=== PATIENT | female | born 1970 | race African-American/Black ===

== ENCOUNTER 2017-05-19 03:04 | Emergency (ER) | payer BC ==
[~2017-05-19] VITALS: Ht 167.6 cm; Wt 111.4 kg
[2017-05-19 03:11] VITALS: BP 142/87; PULSE 90; RESP 12; TEMP 99.2; O2SAT 100
[2017-05-19] MEDS ORDERED: TRIA37.5 PO (03:22)
[2017-05-19] MEDS ORDERED: LEVO.2 PO (03:22)
[2017-05-19] MEDS ORDERED: PAXI30TA7 PO (03:22)
[2017-05-19] MEDS ORDERED: METH500T PO (03:22)
[2017-05-19] MEDS ORDERED: SYNT175T PO (03:22)
[2017-05-19] MEDS ORDERED: CHOL1CAP34 PO (03:22)
[2017-05-19 03:38] VITALS: BP 135/87; PULSE 80
[2017-05-19] MEDS ORDERED: diphenhydrAMINE HCL 50 MG/ML VIAL IV PUSH ONE (03:45)
[2017-05-19] MEDS ORDERED: PROCHLORPERAZINE INJ 10 MG/2 ML VIAL IV PUSH ONE (03:45)
[2017-05-19] MEDS ORDERED: KETOROLAC TROMETHAMINE 30 MG/ML (IVP) VIAL IV PUSH ONE (03:45)
[2017-05-19] MEDS ORDERED: SODIUM CHLOR 0.9% 1000 ML INJ 1,000 ML IV ONE (03:45)
--- NOTE | 2017-05-19 03:47 | PD ---
HPI Chief Complaint: Headache Time Seen by Provider: 03:17 Travel History International Travel<30 days: No Contact w/Intl Traveler<30days: No Traveled to known affect area: No History of Present Illness HPI This is a 47-year-old female who has a history of migraine headaches in the past who presents to the emergency department with 2 days of a headache that involves mostly her forehead and goes behind her eyes. She says started around 2 PM yesterday but was gradual in onset. She has had some nausea with it. She' s taken BC powder and she tried to take her blood pressure medicine but it's not helping so she came to the emergency department. She denies any vomiting, difficulty walking or difficulty talking. She says that her doctor used to prescribe her Midrin and Fioricet for her headaches but she hasn't had one in quite a while so she didn't have anything at home to take. PFSH Past Medical History Anxiety: Yes High Cholesterol: Yes Gastrointestinal Disorders: Yes (IBS) GERD: Yes Hiatal Hernia: Yes Hypertension: Yes Reproductive: Yes (ENDOMETRIOSIS, UTERINE FIBROID TUMORS) Migraines: Yes Thyroid Disease: Yes (HYPOTHYROIDISM) Tetanus Vaccination: > 5 Years Influenza Vaccination: Yes ?: Not LMP: 05/05/17 : 3 Miscarriage: 3 Ectopic : Yes (X2) Past Surgical History Abdominal Surgery: Yes (SMALL HIATAL HERNIA REPAIR:2014, EXPLORATORY LAPS: 1990,1994,1996) Cholecystectomy: Yes (2007) Gynecologic Surgery: Yes (LEFT BREAST NODULE REMOVED: NOT CANCER, MYOMECTOMY: 2002) Social History Alcohol Use: No Tobacco Use: No Substance Use: No Allergies-Medications (Allergen,Severity, Reaction): Coded Allergies: No Known Allergies (Verified Allergy, Unknown, 05/19/17) Reported Meds & Prescriptions Reported Meds & Active Scripts Active Reported Paxil (Paroxetine HCl) 30 Mg Tab 30 Mg PO DAILY Vitamin D3 (Cholecalciferol) 50,000 Unit Cap 50,000 Units PO Q7D Triamterene-Hydrochlorothiazide 37.5-25 Mg Tab 1 Tab PO DAILY Methyldopa 500 Mg Tab 500 Mg PO BID Synthroid (Levothyroxine Sodium) 200 Mcg Tab 200 Mcg PO DAILY MONDAY Synthroid (Levothyroxine Sodium) 175 Mcg Tab 175 Mcg PO DAILY M,T,W,TH,F,SA Review of Systems Except as stated in HPI: all other systems reviewed are Neg Physical Exam Narrative GENERAL:Well appearing, no acute distress SKIN: Focused skin assessment warm and dry. HEAD: Atraumatic. Normocephalic. EYES: Pupils equal and round. No injection or drainage. ENT: Moist mucous membranes NECK: Trachea midline. CARDIOVASCULAR: Regular rate and rhythm. No murmur appreciated. RESPIRATORY: Clear to auscultation. Breath sounds equal bilaterally. GASTROINTESTINAL: Abdomen soft, non-tender, nondistended. MUSCULOSKELETAL: No obvious deformities. NEUROLOGICAL: Awake and alert. No obvious cranial nerve deficits. No dysarthria or aphasia. No upper or lower extremity drift. No upper extremity ataxia. Visual sands intact. PSYCHIATRIC: Appropriate mood and affect; insight and judgment normal. Data Data Last Documented VS Vital Signs Date Time Temp Pulse Resp B/P (MAP) Pulse Ox O2 Delivery O2 Flow Rate FiO2 05/19/17 04:41 74 16 124/76 (92) 98 Room Air 05/19/17 03:11 99.2 Orders Orders Ketorolac Inj (Toradol Inj) (05/19/17 03:45) Prochlorperazine Inj (Compazine Inj) (05/19/17 03:45) Diphenhydramine Inj (Benadryl Inj) (05/19/17 03:45) Sodium Chlor 0.9% 1000 Ml Inj (Ns 1000 M (05/19/17 03:45) ^ Insert Iv (05/19/17 03:45) MDM Medical Decision Making Medical Screen Exam Complete: Yes Emergency Medical Condition: Yes Differential Diagnosis migraine headache, tension headache, subarachnoid hemorrhage, cluster headache Narrative Course This is a 47 year old female who presents to the emergency department with symptoms consistent with a tension headache. Her headache was gradual in onset and similar to headaches she has had in the past so I don't suspect subarachnoid hemorrhage and I don't think any further imaging is warranted. Pt. has a normal neurologic exam. She was given IV fluids, toradol and compazine and feels much better. Pt. was discharged home with naproxen. Diagnosis Primary Impression: Tension headache Patient Instructions: General Instructions Additional Instructions: If you develop severe or worsening headache, vomiting, difficulty walking or difficulty talking return to the emergency department. Some times in the emergency department we don't identify the cause of headaches. If you continue to have headaches follow up with your primary care physician as you may need an MRI. Med/Other Pt SpecificInfo: Prescription(s) given Scripts Naproxen (Naproxen) 500 Mg Tab 500 MG PO BID Y for PAIN SCALE 4 TO 10, #15 TAB 0 Refills Prov: Martha Malagon MD 05/19/17 Disposition: 01 DISCHARGE HOME Condition: Stable Martha Malagon MD May 19, 2017 03:47
[2017-05-19 04:20] VITALS: BP 114/74; PULSE 85; RESP 16; O2SAT 95
[2017-05-19 04:41] VITALS: BP 124/76; PULSE 74; RESP 16; O2SAT 98
[2017-05-19] MEDS ORDERED: NAPR500T PO (04:48)
== END 2017-05-19 05:00 | disposition home or self-care (01) ==
LOC: PHED 03:04
DX: G44.209 Tension-type headache, unspecified, not intractable (principal); E03.9 Hypothyroidism, unspecified; E78.00 Pure hypercholesterolemia, unspecified; I10 Essential (primary) hypertension
CPT/HCPCS: 96361; 96374; 96375; 99284; J0780; J1200; J1885; J7030

== ENCOUNTER 2017-05-31 21:46 | Emergency (ER) | payer BC ==
[~2017-05-31] VITALS: Ht 167.6 cm; Wt 110.5 kg
[~2017-05-31 21:46] MED LIST: CHOL1CAP34 PO; LEVO.2 PO; METH500T PO; NAPR500T PO; PAXI30TA7 PO; SYNT175T PO; TRIA37.5 PO
[2017-05-31 21:48] VITALS: BP 150/95; PULSE 103; RESP 18; TEMP 98.2; O2SAT 98
[2017-05-31] MEDS ORDERED: FERR325C PO (22:13)
[2017-05-31] MEDS ORDERED: TRAM50TA PO (22:13)
[2017-05-31] MEDS ORDERED: DHEA50TA PO (22:13)
[2017-05-31] MEDS ORDERED: diphenhydrAMINE HCL 50 MG CAP PO ONE (22:15)
--- NOTE | 2017-05-31 22:20 | PD ---
HPI Chief Complaint: Skin Problem Time Seen by Provider: 22:00 Travel History International Travel<30 days: No Contact w/Intl Traveler<30days: No Traveled to known affect area: No History of Present Illness HPI 47-year-old female presents emergency department for a rash under her breasts for 2 weeks. States she used an [id number] medication miconazole and nystatin cream but has only worsened over this last week. States that she gets these infections about once a year and they clear up without a problem. Rash is pruritic and only mildly painful at 2 out of 10. She denies fever, chills, chest pain, shortness of breath, back pain. Denies recent travel, new medication, or food. PFSH Past Medical History Anxiety: Yes High Cholesterol: Yes Gastrointestinal Disorders: Yes (IBS) GERD: Yes Hiatal Hernia: Yes Hypertension: Yes Reproductive: Yes (ENDOMETRIOSIS, UTERINE FIBROID TUMORS) Migraines: Yes Thyroid Disease: Yes (HYPOTHYROIDISM) : 3 Miscarriage: 3 Ectopic : Yes (X2) Past Surgical History Abdominal Surgery: Yes (SMALL HIATAL HERNIA REPAIR:2014, EXPLORATORY LAPS: 1990,1994,1996) Cholecystectomy: Yes (2007) Gynecologic Surgery: Yes (LEFT BREAST NODULE REMOVED: NOT CANCER, MYOMECTOMY: 2002) Social History Alcohol Use: No Tobacco Use: No Substance Use: No Allergies-Medications (Allergen,Severity, Reaction): Coded Allergies: No Known Allergies (Verified Allergy, Unknown, 05/31/17) Reported Meds & Prescriptions Reported Meds & Active Scripts Active Nystatin Topical (Nystatin) 100,000 unit/gm Cream 1 Applic TOPICAL BID 14 Days Nystatin-Triamcinolone 100,000-0.1 Unit/Gm Cream 1 Applic TOPICAL BID Reported Tramadol (Tramadol HCl) 50 Mg Tab 50 Mg PO Q8H PRN Iron (Ferrous Sulfate) 325 Mg Cap 325 Mg PO DAILY Dhea (Prasterone (DHEA)) 50 Mg Tab 50 Mg PO DAILY Paxil (Paroxetine HCl) 30 Mg Tab 30 Mg PO DAILY Vitamin D3 (Cholecalciferol) 50,000 Unit Cap 50,000 Units PO Q7D Triamterene-Hydrochlorothiazide 37.5-25 Mg Tab 1 Tab PO DAILY Methyldopa 500 Mg Tab 500 Mg PO BID Synthroid (Levothyroxine Sodium) 200 Mcg Tab 200 Mcg PO DAILY MONDAY Synthroid (Levothyroxine Sodium) 175 Mcg Tab 175 Mcg PO DAILY M,T,W,TH,F,SA Review of Systems Except as stated in HPI: all other systems reviewed are Neg Physical Exam Narrative GENERAL: Well-developed well-nourished SKIN: Focused skin assessment warm/dry. Bilateral breast folds with raised plaques (left 12cm x 4cm, right 10cm x 5cm) with scant satellite lesions. Mild erythema. No scaling, no lymphangiopathic spread. HEAD: Atraumatic. Normocephalic. NECK: Trachea midline. No JVD. CARDIOVASCULAR: Regular rate and rhythm. No murmur appreciated. RESPIRATORY: No accessory muscle use. Clear to auscultation. Breath sounds equal bilaterally. MUSCULOSKELETAL: No obvious deformities. NEUROLOGICAL: Awake and alert. No obvious cranial nerve deficits. Motor grossly within normal limits. Normal speech. PSYCHIATRIC: Appropriate mood and affect; insight and judgment normal. Data Data Last Documented VS Vital Signs Date Time Temp Pulse Resp B/P (MAP) Pulse Ox O2 Delivery O2 Flow Rate FiO2 05/31/17 21:48 98.2 103 18 150/95 (113) 98 Orders Orders Diphenhydramine (Benadryl) (05/31/17 22:15) Ed Discharge Order (05/31/17 22:22) MDM Medical Decision Making Medical Screen Exam Complete: Yes Emergency Medical Condition: Yes Differential Diagnosis Contact dermatitis versus intertrigo versus eczema Narrative Course 47-year-old female here for evaluation of bilateral breast rash for 2 weeks. States that she has had this rash before but clears up with nystatin. This episode of rash has not cleared up and has worsened over the last week. No recent travel, medications, or foods. Physical exam revealed a large plaques under bilateral breasts with mild erythema. No evidence of lymphangitic Spread or infectious process. No excoriations present. No dimpling of breast tissue. History and Physical is consistent with intertrigo. Patient prescribed nystatin with triamcinolone and nystatin powder. Advised to keep the areas dry and clean to prevent worsening of the rash and infection. Follow-up with primary care physician within 2 days Advised to return to the emergency department if rash worsens or signs of infection develop. Diagnosis Primary Impression: Intertrigo Referrals: [facility] Swamper Primary Care Physician Additional Instructions: Keep area clean and dry. Recommend using ointments at night and powder during the day. Follow up a primary care physician within 2 days If rash develops increased redness develops pus or increased swelling return to the emergency department further treatment and evaluation Scripts Nystatin Topical (Nystatin Topical) 100,000 unit/gm Cream 1 APPLIC TOPICAL BID for Infection for 14 Days, #15 GM 0 Refills Prov: Latonia Freed MD 05/31/17 Nystatin-Triamcinolone (Nystatin-Triamcinolone) 100,000-0.1 Unit/Gm Cream 1 APPLIC TOPICAL BID for Infection, #30 GM 0 Refills Prov: Latonia Freed MD 05/31/17 Disposition: 01 DISCHARGE HOME Condition: Stable Mylene Saha May 31, 2017 22:20
[2017-05-31] MEDS ORDERED: NYST15T TOPICAL (22:21)
[2017-05-31] MEDS ORDERED: NYSTCRE29 TOPICAL (22:21)
[2017-05-31] MEDS ORDERED: NYST10007 TOPICAL (22:31)
[2017-06-01] MEDS ORDERED: NYSTATIN/TRIAMCINOLONE OINT 15 GM TUBE TOPICAL SCH (09:00)
== END 2017-05-31 22:33 | disposition home or self-care (01) ==
LOC: PHED 21:46 → PHEFT 22:33
DX: L30.4 Erythema intertrigo (principal); I10 Essential (primary) hypertension; E03.9 Hypothyroidism, unspecified; E78.00 Pure hypercholesterolemia, unspecified
CPT/HCPCS: 99283; Q0163

== ENCOUNTER 2017-07-10 20:25 | Emergency (ER) | payer BC ==
[~2017-07-10] VITALS: Ht 167.6 cm; Wt 112.3 kg
[~2017-07-10 20:25] MED LIST changes: +DHEA50TA PO; +FERR325C PO; -NAPR500T PO; +NYST10007 TOPICAL; +NYSTCRE29 TOPICAL; +TRAM50TA PO
[2017-07-10 20:27] VITALS: BP 133/88; PULSE 96; RESP 20; TEMP 98.1; O2SAT 98
--- NOTE | 2017-07-10 20:44 | PD ---
HPI . Fourth digit right foot toe pain Chief Complaint: Injury Time Seen by Provider: 20:38 Travel History International Travel<30 days: No Contact w/Intl Traveler<30days: No Traveled to known affect area: No History of Present Illness HPI 47-year-old female presents emergency department for evaluation of fourth digit right foot toe pain times one week. Patient states she accidentally hit her toe on a ladder last week. Patient denies any history of diabetes. She denies any fever, chills, malaise, chest pain, shortness breath. Patient has been ambulatory on the foot without a limp. PFSH Past Medical History Anxiety: Yes Cardiovascular Problems: Yes (HTN) High Cholesterol: Yes Gastrointestinal Disorders: Yes (IBS) GERD: Yes Hiatal Hernia: Yes Hypertension: Yes Reproductive: Yes (ENDOMETRIOSIS, UTERINE FIBROID TUMORS) Migraines: Yes Pancreatitis: Yes Thyroid Disease: Yes (HYPOTHYROIDISM) Tetanus Vaccination: > 5 Years Influenza Vaccination: Yes ?: Not LMP: 2 WEEEKS : 3 Miscarriage: 3 Ectopic : Yes (X2) Past Surgical History Abdominal Surgery: Yes (SMALL HIATAL HERNIA REPAIR:2014, EXPLORATORY LAPS: 1990,1994,1996) Cholecystectomy: Yes (2007) Gynecologic Surgery: Yes (LEFT BREAST NODULE REMOVED: NOT CANCER, MYOMECTOMY: 2002) Social History Alcohol Use: No Tobacco Use: No Substance Use: No Allergies-Medications (Allergen,Severity, Reaction): Coded Allergies: No Known Allergies (Verified , 07/10/17) Reported Meds & Prescriptions Reported Meds & Active Scripts Active Reported Triamterene-Hydrochlorothiazide 37.5-25 Mg Tab 1 Tab PO DAILY Methyldopa 500 Mg Tab 500 Mg PO BID Synthroid (Levothyroxine Sodium) 200 Mcg Tab 200 Mcg PO DAILY MONDAY Synthroid (Levothyroxine Sodium) 175 Mcg Tab 175 Mcg PO DAILY M,T,W,TH,F,SA Review of Systems Except as stated in HPI: all other systems reviewed are Neg Physical Exam Narrative GENERAL: Well-nourished, well-developed 47-year-old female patient in no acute distress. Nontoxic appearing. SKIN: Focused skin assessment warm/dry. HEAD: Normocephalic. Atraumatic. EYES: No scleral icterus. No injection or drainage. NECK: Supple, trachea midline. No JVD or lymphadenopathy. CARDIOVASCULAR: Regular rate and rhythm without murmurs, gallops, or rubs. Pedal pulses +2 bilaterally. RESPIRATORY: Breath sounds equal bilaterally. No accessory muscle use. GASTROINTESTINAL: Abdomen soft, non-tender, nondistended. MUSCULOSKELETAL: Full range of motion noted with right foot. Full range of motion noted in the digits of the right foot. BACK: Nontender without obvious deformity. No CVA tenderness. Data Data Last Documented VS Vital Signs Date Time Temp Pulse Resp B/P (MAP) Pulse Ox O2 Delivery O2 Flow Rate FiO2 07/10/17 20:27 98.1 96 20 133/88 (103) 98 Orders Orders Ice/Cold Pack (07/10/17 20:32) Splint Or Brace Apply/Monitor (07/10/17 20:40) Ketorolac Inj (Toradol Inj) (07/10/17 20:45) Ed Discharge Order (07/10/17 20:44) [facility] Medical Decision Making Medical Screen Exam Complete: Yes Emergency Medical Condition: Yes Differential Diagnosis Differential diagnoses include but not limited to contusion, fracture, sprain Narrative Course 47-year-old female presents emergency department for evaluation of right toe pain of the fourth digit times one week. The fourth digit of the right toe has no obvious deformities, ecchymosis and has full range of motion. Fourth digit of the right toe was jose wrapped and patient was given a postop boot. Patient was given an IM injection of Toradol and discharged home with instructions for Rice therapy and to follow-up with a zinc furnace charger. Diagnosis Primary Impression: Toe pain Qualified Codes: M79.674 - Pain in right toe(s) Referrals: Primary Care Physician Patient Instructions: General Instructions, Ice Pack Application (DC), Sprain ( ED) Additional Instructions: Please return to emergency department if your symptoms return or worsen. Follow up with your primary care provider. Rice therapy to right foot, rest, ice, postop boot until symptoms relieved and elevate when resting. Take [id number] ibuprofen as needed for pain or swelling. Disposition: 01 DISCHARGE HOME Condition: Stable Giovanna Monzon GULSHAN Jul 10, 2017 20:44
[2017-07-10] MEDS ORDERED: KETOROLAC TROMETHAMINE 60 MG/2 ML (IM) VIAL IM ONE (20:45)
== END 2017-07-10 21:03 | disposition home or self-care (01) ==
LOC: PHEFT 20:25
DX: M79.674 Pain in right toe(s) (principal)
CPT/HCPCS: 29550; 96372; 99284; J1885; L3260

== ENCOUNTER 2018-02-06 15:12 | Emergency (ER) | payer BC ==
[~2018-02-06] VITALS: Ht 167.6 cm; Wt 117.5 kg
[~2018-02-06 15:12] MED LIST changes: -CHOL1CAP34 PO; -DHEA50TA PO; -FERR325C PO; -NYST10007 TOPICAL; -NYSTCRE29 TOPICAL; -PAXI30TA7 PO; -TRAM50TA PO
[2018-02-06 15:21] VITALS: BP 141/65; PULSE 89; RESP 16; TEMP 98.6; O2SAT 98
[2018-02-06] MEDS ORDERED: SODIUM CHLOR 0.9% 1000 ML INJ 1,000 ML IV ONE (16:09)
[2018-02-06] MEDS ORDERED: KETOROLAC TROMETHAMINE 30 MG/ML (IVP) VIAL IVP ONE (16:15)
[2018-02-06] MEDS ORDERED: SODIUM CHLORIDE 0.9% FLUSH 10 ML FLUSH IVF PRN (16:15)
[2018-02-06] MEDS ORDERED: diphenhydrAMINE HCL 50 MG/ML VIAL IVP ONE (16:15)
[2018-02-06] MEDS ORDERED: PROCHLORPERAZINE INJ 10 MG/2 ML VIAL IVP ONE (16:15)
--- NOTE | 2018-02-06 16:16 | PD ---
HPI Chief Complaint: Hypertension Time Seen by Provider: 16:01 Travel History International Travel<30 days: No Contact w/Intl Traveler<30days: No Traveled to known affect area: No History of Present Illness HPI 47-year-old female presents to the emergency department for evaluation of a frontal headache that started approximately 3 days ago. Patient currently states the headache is 7/10, throbbing, without radiation. She does report history of tension headaches and migraine headaches. She states is similar to headaches she has had in the past. This is not the most severe headache. She states it started and gradually worsened. Patient does state that she was recently taken off her triamterene due to getting ready for IVF. Patient states that she has gained weight since coming off of her medication. She states that her systolic blood pressure has been anywhere from 140-150 and the diastolic has been anywhere from 80-90. Patient denies any chest pain or shortness of breath. She denies any difficulty ambulating or visual changes. Patient states she took a BC powder with an allergy medication without improvement. She denies any chance of . Moderate severity. PFSH Past Medical History Anxiety: Yes Cardiovascular Problems: Yes (HTN) High Cholesterol: Yes Gastrointestinal Disorders: Yes (IBS) GERD: Yes Hiatal Hernia: Yes Hypertension: Yes Reproductive: Yes (ENDOMETRIOSIS, UTERINE FIBROID TUMORS) Migraines: Yes Pancreatitis: Yes Thyroid Disease: Yes (HYPOTHYROIDISM) ?: Not LMP: 01/13/18 : 3 Miscarriage: 3 Ectopic : Yes (X2) Past Surgical History Abdominal Surgery: Yes (SMALL HIATAL HERNIA REPAIR:2014, EXPLORATORY LAPS: 1990,1994,1996) Cholecystectomy: Yes (2007) Gynecologic Surgery: Yes (LEFT BREAST NODULE REMOVED: NOT CANCER, MYOMECTOMY: 2002) Social History Alcohol Use: No Tobacco Use: No Substance Use: No Allergies-Medications (Allergen,Severity, Reaction): Coded Allergies: No Known Allergies (Verified , 02/06/18) Reported Meds & Prescriptions Reported Meds & Active Scripts Active Reported Methyldopa 500 Mg Tab 500 Mg PO BID Synthroid (Levothyroxine Sodium) 200 Mcg Tab 200 Mcg PO DAILY MONDAY Synthroid (Levothyroxine Sodium) 175 Mcg Tab 175 Mcg PO DAILY M,T,W,TH,F,SA Review of Systems Except as stated in HPI: all other systems reviewed are Neg Physical Exam Narrative GENERAL: Well-nourished, well-developed female patient, ambulatory. Afebrile SKIN: Focused skin assessment warm/dry. HEAD: Normocephalic. Atraumatic. EYES: No scleral icterus. No injection or drainage. PERRLA. EOM intact NECK: Supple, trachea midline. No JVD or lymphadenopathy. CARDIOVASCULAR: Regular rate and rhythm without murmurs, gallops, or rubs. RESPIRATORY: Breath sounds equal bilaterally. No accessory muscle use. Lung sounds are clear to auscultation throughout. GASTROINTESTINAL: Abdomen soft, non-tender, nondistended. MUSCULOSKELETAL: No cyanosis, or edema. BACK: Nontender without obvious deformity. No CVA tenderness. NEUROLOGICAL: Awake and alert. Cranial nerves II through XII intact. Motor and sensory grossly within normal limits. Five out of 5 muscle strength in all muscle groups. Normal speech. Finger to nose is normal bilaterally. Newg-zt-rhch is normal bilaterally. Data Data Last Documented VS Vital Signs Date Time Temp Pulse Resp B/P (MAP) Pulse Ox O2 Delivery O2 Flow Rate FiO2 02/06/18 17:22 16 02/06/18 16:25 Room Air 02/06/18 16:25 77 127/77 (94) 98 02/06/18 15:21 98.6 Orders Orders Iv Access Insert/Monitor (02/06/18 16:09) Sodium Chloride 0.9% Flush (Ns Flush) (02/06/18 16:15) Ketorolac Inj (Toradol Inj) (02/06/18 16:15) Prochlorperazine Inj (Compazine Inj) (02/06/18 16:15) Diphenhydramine Inj (Benadryl Inj) (02/06/18 16:15) Sodium Chlor 0.9% 1000 Ml Inj (Ns 1000 M (02/06/18 16:09) MDM Medical Decision Making Medical Screen Exam Complete: Yes Emergency Medical Condition: Yes Medical Record Reviewed: Yes Differential Diagnosis Tension type headache versus migraine headache versus hypertension Narrative Course 47-year-old female presents to the emergency department for evaluation of hypertension and headache. Her blood pressure is 141/65 in the emergency department. IV access established. Patient is given normal saline 1 L IV bolus , Toradol 30 mg IV, Compazine 10 mg IV, Benadryl 25 mg IV for headache. I do not suspect intracranial abnormality or subarachnoid hemorrhage as this is consistent with previous headaches. Upon reexamination, patient states she is feeling much better. Pain is currently 2/10. Patient is stable for discharge home. The patient was discharged in stable condition with instructions, including return instructions and follow up instructions. Diagnosis Primary Impression: Tension type headache Qualified Codes: G44.209 - Tension-type headache, unspecified, not intractable Referrals: Primary Care Physician call for appointment Patient Instructions: Acute Headache (ED), General Instructions Additional Instructions: Feds-rxh-yvsrjob ibuprofen every 6-8 hours as needed for headache. Follow-up with your physician regarding her blood pressure medication. Return to the emergency department for any acute worsening of symptoms. Med/Other Pt SpecificInfo: No Change to Meds Disposition: 01 DISCHARGE HOME Condition: Stable Meryl Davalos Feb 06, 2018 16:16
[2018-02-06 16:25] VITALS: BP 127/77; PULSE 77; RESP 18; O2SAT 98
[2018-02-06 17:22] VITALS: RESP 16
[2018-02-06 18:02] VITALS: BP 144/86
== END 2018-02-06 18:05 | disposition home or self-care (01) ==
LOC: PHEFT 15:12
DX: G44.209 Tension-type headache, unspecified, not intractable (principal); I10 Essential (primary) hypertension; E78.00 Pure hypercholesterolemia, unspecified; E03.9 Hypothyroidism, unspecified
CPT/HCPCS: 96361; 96374; 96375; 99284; J0780; J1200; J1885; J7030